=== PATIENT | male | born 1960 | race African-American/Black ===

== ENCOUNTER 2019-02-27 21:57 | Observation (INO) ==
[2019-02-27] MEDS ORDERED: Ondansetron 4 MG/2 ML VIAL IVP STA (22:49)
[2019-02-27] MEDS ORDERED: *HR* FentaNYL (PF) 100 MCG/2 ML VIAL IVP ONE (22:49)
--- NOTE | 2019-02-27 22:51 | Emergency Department Note ---
Disposition Clinical Impression: Left flank pain, Nephrolithiasis, Obstructive uropathy Disposition: Admitted As Inpatient Condition: Fair Forms: ED Satisfaction Letter, Work/School Release Time of Disposition: 00:17 General Adult HPI - General Chief complaint: ED Abdominal Pain Stated complaint: I have a kidney stone Time Seen by Provider: 02/27/19 22:40 Source: patient Mode of arrival: ambulatory Limitations: no limitations Nursing Notes Reviewed: Yes Vital Signs Reviewed: Yes - History of Present Illness HPI Narrative: 58 yo male with past medical history of diabetes and kidney stones presents to the emergency department with worsening left flank pain secondary to a kidney stone. He went to [facility] on and was diagnosed with a 3 mm kidney stone on the left after he experienced sudden onset of left flank pain radiating into his groin. He was discharged with tramadol which she states has not been helping with his pain. He has been unable to schedule an appointment with a urologist and states he has had 3 attacks since of severe left-sided pain and could not take the pain anymore. He has been nauseous on and off but denies vomiting. He denies chest pain, shortness of breath, constipation and diarrhea. He has had some dysuria. Pain Scale: 10 - Related Data Allergies Allergy/AdvReac Type Severity Reaction Status Date / Time No Known Allergies Allergy Verified 02/27/19 22:02 All systems ED: reviewed and negative except as stated. Review of Systems: As Per HPI Constitutional: Denies: fever, weakness Cardiovascular: Denies: chest pain, palpitations, dyspnea on exertion Respiratory: Denies: cough, dyspnea, wheezes Gastrointestinal: Reports: abdominal pain, nausea. Denies: vomiting, diarrhea Genitourinary: Reports: dysuria. Denies: hematuria Musculoskeletal: Reports: back pain Integumentary: Denies: rash Neurological: Denies: headache Endocrine: Denies: fatigue Past Medical History - Past Medical History Attestation: Yes The following information was validated with the patient. Source: patient Medical history: Reports: diabetes, kidney stones - Social History Smoking Status: Never smoker Alcohol use: Reports: none Drug use: Reports: none Physical Exam - General Limitations: no limitations General appearance: alert, in no apparent distress - Head Head exam: atraumatic, normocephalic - Eye Eye exam: Present: normal appearance, EOMI - ENT ENT exam: normal exam, normal oropharynx - Neck Neck exam: Present: normal inspection - Chest Chest inspection: Present: normal inspection. Absent: tenderness, rash - Respiratory Respiratory exam: Present: normal lung sounds bilaterally. Absent: wheezes - Cardiovascular Cardiovascular exam: Present: regular rate, normal rhythm - Abdominal Exam Abdominal exam: Present: soft, tenderness. Absent: distention, guarding, rebound, rigidity Abdominal tenderness: Present: LUQ, mild - Extremities Exam Extremities exam: Present: normal inspection. Absent: tenderness, pedal edema - Back Exam Back exam: Present: CVA tenderness (L). Absent: CVA tenderness (R) - Neurological Exam Neurological exam: Present: alert, oriented X3 - Psychiatric Psychiatric exam: Present: normal affect, normal mood - Skin Skin exam: Present: warm, dry, intact Course Vital Signs Temperature 98.0 F 02/27/19 21:59 Pulse Rate 68 02/27/19 21:59 Respiratory Rate 20 02/27/19 21:59 Blood Pressure 149/95 02/27/19 21:59 O2 Sat by Pulse Oximetry 96 02/27/19 21:59 Temperature 98.0 F 02/27/19 21:59 Pulse Rate 68 02/27/19 21:59 Respiratory Rate 20 02/27/19 21:59 Blood Pressure 149/95 02/27/19 21:59 O2 Sat by Pulse Oximetry 96 02/27/19 21:59 Oxygen Delivery Oxygen Delivery Room Air Medical Decision Making - [facility] Narrative Medical decision making narrative: Patient presents from home with worsening left flank pain after a diagnosed kidney stone. We will obtain basic labs, urinalysis and a CT scan of his abdomen to look at the progression of the kidney stone. Patient will also be given fentanyl and Zofran. Patient will be signed out to Dr. Thomason for further management of his care. - Medical Records Medical records reviewed: Yes I reviewed the patient's medical records. - Lab Data Result diagrams: 02/27/19 22:46 02/27/19 22:46 Attestation Statement - Attestation Attestation: I have seen this patient with the resident physician, I have personally evaluate d this patient. I had reviewed the chart and document dictation by the resident physician and aM in agreement with the information documented by the resident physician. Please see documentation by the resident physician for complete chart including past medical history, family medical history, review of systems, current history and physical and laboratory and imaging studies. I was present for all procedures, provided direct supervision for all procedures, was present for the entirety of all procedures and provided direct guidance during the procedures. Please see documentation by the resident physician for any procedures performed. I have reviewed all interpretations of EKGs, and reviewed all EKGs performed on patient's as well. I have also reviewed reports of imaging as provided by radiology. Patient presented emergency department with intractable left-sided flank pain, was seen last week at [facility], had a CT scan that showed a kidney stone on the left that was moving, he tried to get in to see urology but cannot be seen for 2 weeks. They put him home on pain medication, and antibiotics, he states that he also followed up with his industrial paramedic because he could not get into see a urologist, his industrial paramedic added Flomax but also told him that his kidney function had worsened. He states that his pain got worse tonight despite the pain medication so he came to the ER. Mild exogenous 11,400 he is already on Keflex. Urinalysis does not show significant evidence of infection. Creatinine is 1.[address] scan demonstrates a 4 mm distal left ureteral stone, with obstructive uropathy with mild to moderate [place] ureter and hydronephrosis. Patient had significant persistent pain despite fentanyl. He will be admitted to the hospital for intractable flank pain with obstructive uropathy.
[2019-02-27 22:56] LABS: Basophils % 0.3 %; Eosinophils # 0.1 K/mcL (0.0-0.6); Eosinophils % 0.9 %; Hematocrit 41.5 % (37.5-50.1); Hemoglobin 14.3 g/dL (12.9-16.9); Immature Granulocytes % 0.3 % (0-4); Lymphocytes # 0.8 K/mcL (0.6-4.6); Lymphocytes % 7.1 %; Mean Corpuscular HGB Conc 34.5 g/dL (31.6-35.5); Mean Corpuscular Hemoglobin 30.6 pg (28.0-33.3); Mean Corpuscular Volume 88.9 fL (83.0-100.0); Mean Platelet Volume 10.1 fL (9.4-12.4); Monocytes # 1.1 K/mcL (0.0-1.3); Monocytes % 9.2 %; Neutrophils # 9.6 K/mcL (1.6-8.9); Platelet Count 205 K/mcL (140-400); Red Blood Count 4.67 M/mcL (4.19-5.50); Red Cell Distribution Width 11.9 % (11.5-14.5); Segmented Neutrophils % 82.2 %; White Blood Count 11.8 K/mcL (4.3-11.1)
[2019-02-27 23:15] LABS: Calcium 9.5 mg/dL (8.6-10.3); Potassium 4.1 mEq/L (3.5-5.1)
[2019-02-27 23:20] LABS: Bilirubin,Urine Negative (Negative); Blood,Urine Negative (Negative); Clarity,Urine Cloudy (Clear); Color,Urine Yellow (Yellow); Glucose,Urine (UA) Normal (Normal); Ketones,Urine 15 mg/dL (Negative); Leukocyte Esterase,Urine Negative (Negative); Nitrite,Urine Negative (Negative); Protein,Urine Trace mg/dL (Neg-Trace); Specific Gravity,Urine 1.028 (1.010-1.025); Urobilinogen,Urine Normal (Normal)
[2019-02-27 23:32] LABS: Bacteria,Urine Few per hpf (None-Few); RBC,Urine 0-3 per hpf (0-3); Squamous Epithelial Cell,Urine Few per lpf (None-Few)
[2019-02-27 23:33] LABS: Calcium Oxalate Crystals,Urine Present
[2019-02-28] MEDS ORDERED: *HR* FentaNYL (PF) 100 MCG/2 ML VIAL IVP ONE (00:30)
[2019-02-28] MEDS ORDERED: 0.9 % Sodium Chloride 1,000 ML IVC ONE (00:30)
[2019-02-28] MEDS ORDERED: Ketorolac 30 MG/ML VIAL IVP ONE (00:55)
[2019-02-28] MEDS ORDERED: *HR* Dextrose 50 % in Water (Syg) 50 ML SYRINGE IVP PRN ×2 (00:56→18:06)
[2019-02-28] MEDS ORDERED: Dextrose Gel 15 GM/37.5 ML TUBE PO PRN ×4 (00:56→18:06)
[2019-02-28] MEDS ORDERED: Naloxone 0.4 MG/ML INJ IVP PRN ×2 (00:56→18:06)
[2019-02-28] MEDS ORDERED: Ringers Solution, Lactated 1,000 ML IVC SCH ×3 (01:00→18:06)
--- NOTE | 2019-02-28 01:06 | Internal Med History&Physical ---
Date of Encounter: 02/28/19 Time of Encounter: 01:05 Internal Medicine - H&P: HPI Chief complaint: flank pain Admitted From: Home Plans for Post Hospital Care: Home History of present illness: Mor Gottlieb is a 58-year-old man with diabetes, chronic kidney disease and prior nephrolithiasis who presents to our emergency room complaining of worsening left flank pain over the past 4 days. He says he went to [facility] last and was diagnosed with a 3 mm left ureteral stone was discharged with tamsulosin and cephalexin which she has been taking but says his pain has been progressively worsening and today had an acute exacerbation that knocked him down. He localizes the pain to his left flank radiating into his groin companied by nausea and some vomiting but denies fever and chills. He says he had a right-sided kidney stone in the which required a ureteral stent. On arrival he was hemodynamically stable but was a notable pain and was given fentanyl. CT scan showed a left-sided obstructive uropathy with a 4 mm calculus within the left distal ureter. He is admitted for further care. He reports a family history of heart disease. Vitals: Reviewed General: Well-developed white man lying in bed with notable discomfort an antalgic posturing. Skin: Warm and supple. HEENT: Moist mucous membranes. No conjunctivae pallor. Neck: No lymphadenopathy. No JVD. No carotid bruits. No palpable thyroid. Chest: Normal thoracic expansion. Normal breath sounds. Clear to auscultation. Heart: Normal S1 & S2; rhythmic. No rubs or murmurs. Abdomen: Non-distended, soft and exquisitely tender to palpation in the left flank. Extremities: No clubbing, cyanosis or edema. No calf tenderness. Normal distal pulses. Neurological: Awake, alert and oriented to person, place and time. No focal deficits. Psych: Affect appropriate. Assessment/Plan 1. Left-sided obstructive uropathy: Secondary to 4 mm left distal ureter calculus. No signs of concomitant infection present however he now has intractable pain and may require urinary diversion if the obstruction continues. We will consult urology, keep him nothing by mouth in the interim period, p rovide analgesics and antiemetics as needed, continue tamsulosin and fluids. 2. Diabetes: He says he has been well controlled and has not been taking off his antidiabetic medications. Keep him on insulin sliding scale for now. 3. Chronic kidney disease: Unclear what his baseline creatinine clearance is. We will recheck his BMP in the morning after fluids are given. 4. DVT prophylaxis: Antiembolic stockings ordered. Past Med Surg Social Fam HX - Past Medical History Medical history: diabetes, kidney stones - Past Surgical History Additional surgical history: lithotripsy - Social History Smoking Status: Never smoker Alcohol use: none Drug use: none Internal Medicine - H&P: Meds Aspirin [Lo-Dose Aspirin EC] 81 mg PO DAILY 02/28/19 [History] Atorvastatin Calcium [Lipitor] 20 mg PO DAILY 02/28/19 [History] Flomax 0.4 mg PO DAILY 02/28/19 [History] Ubidecarenone/Vit E Acetate [Co Q-10 100 mg Softgel] 1 each PO DAILY 02/28/19 [History] cephALEXin [Keflex] 500 mg PO BID 02/28/19 [History] Allergy/AdvReac Type Severity Reaction Status Date / Time No Known Allergies Allergy Verified 02/27/19 22:02 All Systems PM: A 10-system review of systems was performed and is negative for pertinent findings except as documented above in the HPI. - Constitutional Vitals: Temp Pulse Resp BP Pulse Ox 98.0 F 68 14 127/80 97 02/27/19 21:59 02/27/19 21:59 02/27/19 23:42 02/27/19 23:42 02/27/19 23:42 Exam: . Internal Med - H&P Results - Labs CBC & Chem 7: 02/27/19 22:46 02/27/19 22:46 Labs: Short CBC 02/27/19 Range/Units 22:46 WBC 11.8 H (4.3-11.1) K/mcL Hgb 14.3 (12.9-16.9) g/dL Hct 41.5 (37.5-50.1) % Plt Count 205 (140-400) K/mcL Neutrophils # 9.6 H (1.6-8.9) K/mcL BMP 02/27/19 22:46 Sodium 136 Potassium 4.1 Chloride 106 Carbon Dioxide 23 BUN 18 Creatinine 1.73 H Glucose 165 H Calcium 9.5 Urine 02/27/19 Range/Units 23:03 Urine Color Yellow (Yellow) Urine Clarity Cloudy A (Clear) Urine pH 6.0 (5.0-8.0) pH Units Ur Specific [place] 1.028 H (1.010-1.025) Urine Protein Trace (Neg-Trace) mg/dL Urine Glucose (UA) Normal (Normal) mg/dL - Impressions ITS Impressions Abdomen/Pelvis CT 02/27/19 22:51 IMPRESSION: Left-sided obstructive uropathy with a 4 mm calculus within the left distal ureter. D/ / Kyle Westbrook MD / Kyle Westbrook MD Interpreting Provider: Kyle Westbrook MD - Time Spent With Patient Total time spent is greater than 50% in coordination of care (as documented) at patient's floor/unit and/or counseling patient: Greater than 35 minutes
[2019-02-28] MEDS ORDERED: Insulin LISPRO 300 UNITS/3 ML VIAL SQ SCH (06:00)
[2019-02-28 06:50] LABS: Basophils % 0.3 %; Eosinophils # 0.2 K/mcL (0.0-0.6); Eosinophils % 1.7 %; Hematocrit 37.5 % (37.5-50.1); Hemoglobin 12.4 g/dL (12.9-16.9); Immature Granulocytes % 0.4 % (0-4); Lymphocytes # 1.5 K/mcL (0.6-4.6); Lymphocytes % 16.2 %; Mean Corpuscular HGB Conc 33.1 g/dL (31.6-35.5); Mean Corpuscular Hemoglobin 30.1 pg (28.0-33.3); Mean Platelet Volume 10.4 fL (9.4-12.4); Monocytes # 1.2 K/mcL (0.0-1.3); Monocytes % 13.4 %; Neutrophils # 6.1 K/mcL (1.6-8.9); Platelet Count 180 K/mcL (140-400); Red Blood Count 4.12 M/mcL (4.19-5.50); Red Cell Distribution Width 11.9 % (11.5-14.5)
[2019-02-28 06:57] LABS: INR 1.2; Prothrombin Time 13.1 Seconds (9.4-12.1)
[2019-02-28 07:00] LABS: Activated Partial Thrombo Time 30.8 Seconds (26.0-36.0)
[2019-02-28 07:10] LABS: Calcium 8.6 mg/dL (8.6-10.3); Potassium 4.3 mEq/L (3.5-5.1)
[2019-02-28] MEDS ORDERED: 0.9 % Sodium Chloride 1,000 ML IVC SCH ×2 (07:45→18:06)
--- NOTE | 2019-02-28 08:17 | Urology - Consult Note ---
<Angela Hubbard N - Last Filed: 02/28/19 08:12> Date of Encounter: 02/28/19 Time of Encounter: 07:40 - Assessment and Plan (1) Ureteral stone with hydronephrosis Current Visit: Yes Status: Acute Assessment and plan: Patient is a 58-year-old male who presents with a 4 mm left distal ureteral stone and moderate hydronephrosis. Patient was admitted for intractable pain. Vital signs are stable and afebrile. White blood cell count is reassuring, and serum creatinine is elevated at 1.89. We discussed surgical risks and benefits, and patient and his verbalized understanding. Patient signed consent, and he is prepared undergo a left ureteroscopic stone extraction with or without holmium laser lithotripsy, basket retrieval, and left ureteral stent placement. Patient will remain nothing by mouth. Urology CN:HPI Consult date: 02/28/19 Reason for consult Urology: Other (left ureteral stone) Requesting physician: Rasheed Thomason History of present illness: Patient is a 58-year-old male who presents with a 4 mm left distal ureteral stone and moderate hydronephrosis. Patient presented to emergency department with a 4 day history of severe left-sided flank pain, nausea and vomiting. Patient underwent a CT of the abdomen and pelvis revealing an obstructing 4-5 mm left distal ureteral stone and moderate hydronephrosis. 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 Two days later, patient experienced severe sudden onset of left flank pain, nausea and vomiting. Patient denies any dysuria, fever or chills. Patient has a history of nephrolithiasis and underwent ureteroscopy with stent placement approximately 20 years ago. Patient admits to a positive family history of renal stones through both his mother and father. Past Med Surg Social Fam HX - Past Medical History Medical history: diabetes, kidney stones - Past Surgical History Additional surgical history: lithotripsy - Social History Smoking Status: Never smoker Alcohol use: none Drug use: none - Family History Mother Hx Family Genitourinary Disorders: Yes (renal stones ) Father Hx Family Genitourinary Disorders: Yes (renal stones ) Medications and Allergies Aspirin [Lo-Dose Aspirin EC] 81 mg PO DAILY 02/28/19 [History] Atorvastatin [Lipitor] 10 mg PO HS 02/28/19 [History] FA/Vit C/E/Zinc/Copper/Lut/Jane [Ocuvel Capsule] 1 cap PO DAILY 02/28/19 [History] Tamsulosin HCl [Flomax] 0.4 mg PO DAILY #0 02/28/19 [History] Tramadol HCl [Ultram] 50 mg PO TID PRN 3 Days #9 tab 02/28/19 [Rx] Ubidecarenone/Vit E Acetate [Co Q-10 100 mg Softgel] 1 each PO DAILY 02/28/19 [History] cephALEXin [Keflex] 500 mg PO BID 02/28/19 [History] Allergy/AdvReac Type Severity Reaction Status Date / Time No Known Allergies Allergy Verified 02/27/19 22:02 Review of Systems - Constitutional no chills, no fatigue, no fever(s) - EENT Nose, mouth and throat: no dizziness, no headache(s) - Cardiovascular no chest pain, no diaphoresis, no dyspnea - Respiratory no cough, no dyspnea - Gastrointestinal abdominal pain, nausea, vomiting - Genitourinary flank pain, hematuria, no dysuria, no urinary frequency, no urinary hesitancy, no urinary incontinence, no urinary urgency - Musculoskeletal back pain, no muscle weakness - Integumentary no erythema, no rash - Neurological no confusion, no syncope - Psychiatric no anxiety, no confusion - Hematologic/Lymphatic no easy bleeding, no easy bruising - Allergic/Immunologic no throat swelling, no wheezing Exam Initial Vital Signs Temp Pulse Resp BP Pulse Ox 98.0 F 68 20 149/95 96 02/27/19 21:59 02/27/19 21:59 02/27/19 21:59 02/27/19 21:59 02/27/19 21:59 - General physical appearance Present: well developed, no distress, no pain - Eyes Present: PERRL, normal ocular movement - ENT Present: normal nares, no hearing loss, no congestion - Neck Present: no masses, trachea midline, no lymphadenopathy - Respiratory Present: normal respiratory effort - Cardiovascular Cardiovascular exam IM: bradycardia - Abdomen Abdomen: Present: soft, non tender. Absent: distended - Genitourinary other (no cvat; urine transparent, clear yellow) - Integumentary Present: no rash, no abnormal pigmentation - Neurologic Present: normal coordination - Musculoskeletal Present: normal gait, other (normal posture ) Urology Results - Labs 02/28/19 06:08 02/28/19 06:08 Abnormal lab results WBC 11.8 K/mcL (4.3-11.1) H 02/27/19 22:46 RBC 4.12 M/mcL (4.19-5.50) L 02/28/19 06:08 Hgb 12.4 g/dL (12.9-16.9) L D 02/28/19 06:08 9.6 K/mcL (1.6-8.9) H 02/27/19 22:46 PT 13.1 Seconds (9.4-12.1) H 02/28/19 06:08 1.89 mg/dL (0.70-1.30) H 02/28/19 06:08 Est GFR ( Amer) 45 (> 60) L 02/28/19 06:08 Est GFR (Non-Af Amer) 37 (> 60) L 02/28/19 06:08 Glucose 129 mg/dL (70-105) H 02/28/19 06:08 Cloudy (Clear) A 02/27/19 23:03 Ur Specific [place] 1.028 (1.010-1.025) H 02/27/19 23:03 15 mg/dL (Negative) H 02/27/19 23:03 Ur Culture Indicated? YES (NO) A 02/27/19 23:03 Diabetes panel 02/27/19 02/28/19 Range/Units 22:46 06:08 Sodium 136 141 (136-145) mEq/L Potassium 4.1 4.3 (3.5-5.1) mEq/L Chloride 106 105 (98-107) mEq/L Carbon Dioxide 23 27 (23-29) mEq/L BUN 18 18 (6-20) mg/dL Creatinine 1.73 H 1.89 H (0.70-1.30) mg/dL Glucose 165 H 129 H (70-105) mg/dL Calcium 9.5 8.6 (8.6-10.3) mg/dL Calcium panel 02/27/19 02/28/19 Range/Units 22:46 06:08 Calcium 9.5 8.6 (8.6-10.3) mg/dL Pituitary panel 02/27/19 02/28/19 Range/Units 22:46 06:08 Sodium 136 141 (136-145) mEq/L Potassium 4.1 4.3 (3.5-5.1) mEq/L Chloride 106 105 (98-107) mEq/L Carbon Dioxide 23 27 (23-29) mEq/L BUN 18 18 (6-20) mg/dL Creatinine 1.73 H 1.89 H (0.70-1.30) mg/dL Glucose 165 H 129 H (70-105) mg/dL Calcium 9.5 8.6 (8.6-10.3) mg/dL Adrenal panel 02/27/19 02/28/19 Range/Units 22:46 06:08 Sodium 136 141 (136-145) mEq/L Potassium 4.1 4.3 (3.5-5.1) mEq/L Chloride 106 105 (98-107) mEq/L Carbon Dioxide 23 27 (23-29) mEq/L BUN 18 18 (6-20) mg/dL Creatinine 1.73 H 1.89 H (0.70-1.30) mg/dL Glucose 165 H 129 H (70-105) mg/dL Calcium 9.5 8.6 (8.6-10.3) mg/dL All other labs normal. - Imaging CT scan - abdomen: report reviewed, image reviewed CT scan - pelvis: report reviewed, image reviewed Consult Discharge Plan - Plan Referrals: Vicky Son [Primary Care Provider] - Wilfredo Suarez DO [Partnered Physician] - iWlfredo Yanes [Partnered Physician] - Prescriptions: Tramadol HCl [Ultram] 50 mg PO TID PRN 3 Days #9 tab PRN Reason: Breakthrough Pain <Kervin Schroeder - Last Filed: 02/28/19 15:30> Date of Encounter: 02/28/19 - Assessment and Plan (1) Ureteral stone with hydronephrosis Current Visit: Yes Status: Acute Assessment and plan: pt seen in conjunction with PA. agree with assessment and plan. proceed as scheduled with stone extraction and stent placement. Exam Initial Vital Signs Temp Pulse Resp BP Pulse Ox 98.0 F 68 20 149/95 96 02/27/19 21:59 02/27/19 21:59 02/27/19 21:59 02/27/19 21:59 02/27/19 21:59 Urology Results - Labs 02/28/19 06:08 02/28/19 06:08 Abnormal lab results WBC 11.8 K/mcL (4.3-11.1) H 02/27/19 22:46 RBC 4.12 M/mcL (4.19-5.50) L 02/28/19 06:08 Hgb 12.4 g/dL (12.9-16.9) L D 02/28/19 06:08 9.6 K/mcL (1.6-8.9) H 02/27/19 22:46 PT 13.1 Seconds (9.4-12.1) H 02/28/19 06:08 1.89 mg/dL (0.70-1.30) H 02/28/19 06:08 Est GFR ( Amer) 45 (> 60) L 02/28/19 06:08 Est GFR (Non-Af Amer) 37 (> 60) L 02/28/19 06:08 Glucose 129 mg/dL (70-105) H 02/28/19 06:08 Cloudy (Clear) A 02/27/19 23:03 Ur Specific [place] 1.028 (1.010-1.025) H 02/27/19 23:03 15 mg/dL (Negative) H 02/27/19 23:03 Ur Culture Indicated? YES (NO) A 02/27/19 23:03 Diabetes panel 02/27/19 02/28/19 Range/Units 22:46 06:08 Sodium 136 141 (136-145) mEq/L Potassium 4.1 4.3 (3.5-5.1) mEq/L Chloride 106 105 (98-107) mEq/L Carbon Dioxide 23 27 (23-29) mEq/L BUN 18 18 (6-20) mg/dL Creatinine 1.73 H 1.89 H (0.70-1.30) mg/dL Glucose 165 H 129 H (70-105) mg/dL Calcium 9.5 8.6 (8.6-10.3) mg/dL Calcium panel 02/27/19 02/28/19 Range/Units 22:46 06:08 Calcium 9.5 8.6 (8.6-10.3) mg/dL Pituitary panel 02/27/19 02/28/19 Range/Units 22:46 06:08 Sodium 136 141 (136-145) mEq/L Potassium 4.1 4.3 (3.5-5.1) mEq/L Chloride 106 105 (98-107) mEq/L Carbon Dioxide 23 27 (23-29) mEq/L BUN 18 18 (6-20) mg/dL Creatinine 1.73 H 1.89 H (0.70-1.30) mg/dL Glucose 165 H 129 H (70-105) mg/dL Calcium 9.5 8.6 (8.6-10.3) mg/dL Adrenal panel 02/27/19 02/28/19 Range/Units 22:46 06:08 Sodium 136 141 (136-145) mEq/L Potassium 4.1 4.3 (3.5-5.1) mEq/L Chloride 106 105 (98-107) mEq/L Carbon Dioxide 23 27 (23-29) mEq/L BUN 18 18 (6-20) mg/dL Creatinine 1.73 H 1.89 H (0.70-1.30) mg/dL Glucose 165 H 129 H (70-105) mg/dL Calcium 9.5 8.6 (8.6-10.3) mg/dL All other labs normal.
[2019-02-28] MEDS ORDERED: Aspirin Enteric Coated 81 MG Tablet PO SCH (09:00)
--- NOTE | 2019-02-28 15:23 | Discharge Summary ---
- NOTES TO OUTPATIENT PROVIDER Notes to Outpatient Provider: Follow up with Urology and nephrology as outpatient Orders not resulted at time of discharge: Pending orders 02/27/19 23:03 Culture,Urine [RM] Stat Date of Encounter: 02/28/19 Time of Encounter: 13:00 - Discharge Diagnosis (1) Nephrolithiasis Priority: Secondary Status: Acute (2) Ureteral stone with hydronephrosis Priority: Primary Status: Acute Hospital course: Mr. Gottlieb is a 58 year old male with history of diabetes, CKD, nephrolithiasis, was admitted due to L ureteric stone complicated by hydroureteronephrosis. 4mm calculus within the L distal ureter. No signs of sepsis or infection; pt had already been on PO abx at home. Seen in consultation with Urology and pt will undergo L ureteroscopic stone extraction +/- laser lithotripsy, basket retrieval, and ureteral stent placement on 02/28 and will be discharged home after if procedure goes well. Pt is to complete the course of abx prescribed as outpatient as well as flomax. Follow up with Urology post- procedure as directed. Discharge discussed with: patient, nurse, peoplesoft consultant - Time Spent with Patient Total time spent providing and/or coordinating discharge services: 28 mins Time spent: D/C greater than 8 hours after Admission - Discharge Medications Prescriptions: New Tramadol HCl [Ultram] 50 mg PO TID PRN 3 Days #9 tab PRN Reason: Breakthrough Pain Continued cephALEXin [Keflex] 500 mg PO BID Tamsulosin HCl [Flomax] 0.4 mg PO DAILY #0 Ubidecarenone/Vit E Acetate [Co Q-10 100 mg Softgel] 1 each PO DAILY Aspirin [Lo-Dose Aspirin EC] 81 mg PO DAILY No Action Atorvastatin [Lipitor] 10 mg PO HS FA/Vit C/E/Zinc/Copper/Lut/Jane [Ocuvel Capsule] 1 cap PO DAILY Home Medications: Aspirin [Lo-Dose Aspirin EC] 81 mg PO DAILY 02/28/19 [History] Atorvastatin [Lipitor] 10 mg PO HS 02/28/19 [History] FA/Vit C/E/Zinc/Copper/Lut/Jane [Ocuvel Capsule] 1 cap PO DAILY 02/28/19 [History] Tamsulosin HCl [Flomax] 0.4 mg PO DAILY #0 02/28/19 [History] Tramadol HCl [Ultram] 50 mg PO TID PRN 3 Days #9 tab 02/28/19 [Rx] Ubidecarenone/Vit E Acetate [Co Q-10 100 mg Softgel] 1 each PO DAILY 02/28/19 [History] cephALEXin [Keflex] 500 mg PO BID 02/28/19 [History] Allergies/Adverse Reactions: Allergy/AdvReac Type Severity Reaction Status Date / Time No Known Allergies Allergy Verified 02/27/19 22:02 Date of admission: 02/28/19 01:21 Primary care physician: Vicky Son Consults: 02/28/19 00:56 Consult to Urology [CONS] Stat Consulting Provider: Urology Darlene Reason for Consult: ostructive uropathy Call Completed: Yes - Constitutional Vitals: Temp Pulse Resp BP Pulse Ox 98.1 F 53 18 122/78 96 02/28/19 11:53 02/28/19 11:53 02/28/19 11:53 02/28/19 11:53 02/28/19 11:53 Exam: Vitals: Reviewed General: Well-developed white man lying in bed, comfortable at the time of exam Chest: Normal thoracic expansion. Normal breath sounds. Clear to auscultation. Heart: Normal S1 & S2; rhythmic. No rubs or murmurs. Abdomen: Non-distended, soft. TEnder on L flank : No CVA tenderness Neurological: Awake, alert and oriented to person, place and time. No focal deficits. Psych: Affect appropriate. - Patient Status Disposition: Home, Self-Care Condition: Fair Overall status at discharge: patient is progressing back to baseline - Discharge Instructions Follow Up With: Vicky Son [Primary Care Provider] - Wilfredo Suarez DO [Partnered Physician] - Wilfredo Yanes [Partnered Physician] - - Diet and Activity Activity: resume usual activities as tolerated Diet: diabetic diet
--- NOTE | 2019-02-28 16:06 | Anesthesia Evaluation PreOp ---
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 Any Significant HX Other Medical History: Renal (stone, CKD), Diabetes Type II Anesthesia History: No Prior Anesthetic Complications, Past Anesthesia (lithotripsy) Alcohol Use: none Drug use: none Medications and Allergies Aspirin [Lo-Dose Aspirin EC] 81 mg PO DAILY 02/28/19 [History] Atorvastatin [Lipitor] 10 mg PO HS 02/28/19 [History] FA/Vit C/E/Zinc/Copper/Lut/Jane [Ocuvel Capsule] 1 cap PO DAILY 02/28/19 [History] Tamsulosin HCl [Flomax] 0.4 mg PO DAILY #0 02/28/19 [History] Tramadol HCl [Ultram] 50 mg PO TID PRN 3 Days #9 tab 02/28/19 [Rx] Ubidecarenone/Vit E Acetate [Co Q-10 100 mg Softgel] 1 each PO DAILY 02/28/19 [History] cephALEXin [Keflex] 500 mg PO BID 02/28/19 [History] Allergy/AdvReac Type Severity Reaction Status Date / Time No Known Allergies Allergy Verified 02/27/19 22:02 - Meds/Allergy Pre-op Review Medications Reviewed: Yes Allergies Reviewed: Yes Beta Blockers on Current Med List: No Anesthesia Results - Labs 02/28/19 06:08 02/28/19 06:08 Laboratory Tests 02/28/19 06:08 PT 13.1 H INR 1.2 APTT 30.8 Anesthesia Exam Vital Signs/O2 Sat, Most Current Temp Pulse Resp BP Pulse Ox 98.1 F 53 18 122/78 96 02/28/19 11:53 02/28/19 11:53 02/28/19 11:53 02/28/19 11:53 02/28/19 11:53 Weight: 91kg NPO (# of Hours): >8 - HEENT Pupil (Motor): Pupils equal, EOMI Mallampati: II Teeth: Normal Oral Opening: Greater than 3 - REAMING MACHINE OPERATOR 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
[2019-02-28] MEDS ORDERED: *HR* Promethazine 25 MG/ML VIAL IVP PRN (16:08)
[2019-02-28] MEDS ORDERED: *HR* Meperidine 25 MG/ML SYRINGE IVP PRN (16:08)
[2019-02-28] MEDS ORDERED: Ondansetron 4 MG/2 ML VIAL IVP ONE (16:08)
[2019-02-28] MEDS ORDERED: *HR* FentaNYL (PF) 100 MCG/2 ML VIAL IVP PRN (16:08)
[2019-02-28] MEDS ORDERED: *HR* OxyCODONE Immed Rel 5 MG TABLET PO PRN (16:08)
[2019-02-28] MEDS ORDERED: ceFAZolin 2,000 MG in Water for inj. (sterile) 20 ML IVP ONE (16:29)
--- NOTE | 2019-02-28 16:37 | Operative Note ---
Date of procedure: 02/28/19 Pre-op diagnosis: Left distal ureteral stone Post-op diagnosis: same Procedure: Left ureteroscopic stone extraction without holmium laser Left retrograde pyelogram and stent Anesthesia: GETA Surgeon: Kervin Schroeder Was there an actuarial assistant present: No Estimated blood loss (cc): 0 Specimen: Left ureteral stone Condition: stable Disposition: PACU Procedure in Detail: PROCEDURE IN DETAIL: Patient was taken back to the operating room, positioned supine on the operating table. Anesthesia was applied without complication. They were moved into dorsal lithotomy. Careful attention was maintained to cushion all pressure points for patient's safety. They were prepped and draped in sterile fashion. Time-out was performed with the proper patient and procedure. A 21-Upper Sorbian rigid cystoscope was inserted into the bladder without difficulty. Systematic examination of bladder revealed no abnormalities. The ureteral orifice was cannulated using a 5-Upper Sorbian ureteral Catheter and a zip wire was passed. I attempted to place a semirigid scope but it would not pass through the distal ureter. I then used 8-10 dilator was then placed over the zip wire to passively dilate the ureteral orifice. I then replaced the semi- rigid ureteroscope was carefully inserted into the bladder and guided into the ureteral oriface. At that point, the stone was encountered and and I was able to extract the stone without performing laser lithotripsy. A 4.8 x 26 ureteral stent was placed over the zip wire under fluoroscopy without complication at the end of the case.. The bladder was drained. Stone was sent for analysis. The string was left attached to the stent and secured to the patient for easy removal in approximately 72 hours
[2019-02-28] MEDS ORDERED: Isovue-300 50 ML VIAL ONE (16:38)
[2019-02-28] MEDS ORDERED: Ondansetron 4 MG/2 ML VIAL ONE (17:11)
[2019-02-28] MEDS ORDERED: Dexamethasone 4 MG/ML VIAL ONE (17:11)
[2019-02-28] MEDS ORDERED: *HR* FentaNYL (PF) 100 MCG/2 ML VIAL ONE ×2 (17:11→17:15)
[2019-02-28] MEDS ORDERED: Lidocaine -MPF 4% 5 ML AMPUL ONE (17:11)
[2019-02-28] MEDS ORDERED: Lidocaine -MPF 2% 2 ML VIAL ONE (17:11)
[2019-02-28] MEDS ORDERED: *HR* Propofol 200 MG/20 ML VIAL IVP ONE (17:11)
--- NOTE | 2019-02-28 17:50 | Anesthesia Evaluation Post Op ---
Date of Encounter: 02/28/19 Time of Encounter: 17:49 - Vital Signs Vital Signs: Vital Signs/O2 Sat, Most Current Temp Pulse Resp BP Pulse Ox 98.6 F 53 18 96/68 97 02/28/19 17:30 02/28/19 17:40 02/28/19 17:40 02/28/19 17:40 02/28/19 17:40 - Lungs Lungs: Clear Ascult./Percussion - Airway Airway: Non-obstructed - Cardiovascular Regular Rate - Mental Status Mental Status: Alert & Oriented, Answers Appropriately - Pain Pain Scale: 0 Pain Scale used: Numeric (1 - 10) - Nausea Vomiting Nausea Vomiting: Not Present - Hydration Hydration: Tolerates oral liquids, Has not voided - Discharge PostOp Status: Transfer Patient to floor
[2019-03-01] MEDS: Insulin LISPRO 300 UNITS/3 ML VIAL SQ SCH ×2 (00:10→05:35)
[2019-03-01 05:07] LABS: Calcium 9.2 mg/dL (8.6-10.3); Potassium 4.8 mEq/L (3.5-5.1)
--- NOTE | 2019-03-01 07:34 | Event Note ---
Date of Encounter: 03/01/19 Time of Encounter: 07:32 Cr improved to 1.68. will evaluate this AM. will be OK to discharge from urology standpoint. stent needs to stay in place until at least wednesday. discussed with family that it would be ideal if left in place a few more days to allow appropriate decrease in ureteral edema.
[2019-03-01 08:28] VITALS: BP 138/84
[2019-03-01] MEDS ORDERED: Aspirin Enteric Coated 81 MG Tablet PO SCH (09:00)
--- NOTE | 2019-03-01 09:02 | Urology Progress Note ---
Date of Encounter: 03/01/19 Time of Encounter: 08:10 - Assessment and Plan (1) Ureteral stone with hydronephrosis Current Visit: Yes Status: Acute Assessment and plan: Patient is a 58-year-old male who presents one day status post left ureteroscopic stone extraction, left retrograde pyelogram and left ureteral stent placement. Vital signs are stable and afebrile. Serum creatinine is improved from 1.89-1.68. Urine culture is negative. Patient is okay to be discharged from urologic standpoint. I reviewed postoperative expectations with indwelling ureteral stent, and patient will leave stent indwelling for 3-5 days. Patient may follow up as an outpatient within 2-[address] Schroeder to review stone analysis. Progress Note Subjective: no new complaints Narrative: POD #1. Patient seen and examined sitting upright in chair in no apparent distress. Patient reports he is voiding well without difficulty and tolerating the stent well. Patient is tolerating normal diet without nausea or vomiting. Patient reports his pain is well-controlled. Patient denies any fever, chills or flank pain. Objective Initial Vital Signs Temp Pulse Resp BP Pulse Ox 98.0 F 68 20 149/95 96 02/27/19 21:59 02/27/19 21:59 02/27/19 21:59 02/27/19 21:59 02/27/19 21:59 - General physical appearance Present: well developed, no distress, no pain - Respiratory Present: normal expansion, normal respiratory effort - Abdomen Present: soft, non tender. Absent: distended - Integumentary Present: no rash, no abnormal pigmentation - Musculoskeletal Present: normal posture - Psychiatric Present: oriented to time, oriented to person, oriented to place, speech is normal, memory intact - Labs 02/28/19 06:08 03/01/19 04:09 Diabetes panel 03/01/19 Range/Units 04:09 Sodium 141 (136-145) mEq/L Potassium 4.8 (3.5-5.1) mEq/L Chloride 106 (98-107) mEq/L Carbon Dioxide 24 (23-29) mEq/L BUN 21 H (6-20) mg/dL Creatinine 1.68 H (0.70-1.30) mg/dL Glucose 176 H (70-105) mg/dL Calcium 9.2 (8.6-10.3) mg/dL Calcium panel 03/01/19 Range/Units 04:09 Calcium 9.2 (8.6-10.3) mg/dL Pituitary panel 03/01/19 Range/Units 04:09 Sodium 141 (136-145) mEq/L Potassium 4.8 (3.5-5.1) mEq/L Chloride 106 (98-107) mEq/L Carbon Dioxide 24 (23-29) mEq/L BUN 21 H (6-20) mg/dL Creatinine 1.68 H (0.70-1.30) mg/dL Glucose 176 H (70-105) mg/dL Calcium 9.2 (8.6-10.3) mg/dL Adrenal panel 03/01/19 Range/Units 04:09 Sodium 141 (136-145) mEq/L Potassium 4.8 (3.5-5.1) mEq/L Chloride 106 (98-107) mEq/L Carbon Dioxide 24 (23-29) mEq/L BUN 21 H (6-20) mg/dL Creatinine 1.68 H (0.70-1.30) mg/dL Glucose 176 H (70-105) mg/dL Calcium 9.2 (8.6-10.3) mg/dL Consult Discharge Plan - Plan Referrals: Vicky Son [Primary Care Provider] - Wilfredo Suarez DO [Partnered Physician] - Wilfredo Yanes [Partnered Physician] - Kervin Schroeder MD [Partnered Physician] - Prescriptions: Tramadol HCl [Ultram] 50 mg PO TID PRN 3 Days #9 tab PRN Reason: Breakthrough Pain
[2019-03-05 09:38] LABS: Calculi Mass 22 mg
== END 2019-03-01 11:19 | disposition home or self-care (01) ==
LOC: EMEROOARM 21:57 → 3ANU 21:57 → SUATTDRO 02-28 01:21 → 3ANU 02-28 02:10
PROVIDERS: ADMIT Internal Medicine; ATTEND Internal Medicine